=== PATIENT | male | born 1990 | race Caucasian/White ===

== ENCOUNTER 2019-07-14 17:32 | Emergency (ER) | payer SELFPAY ==
[~2019-07-14] VITALS: Ht 175.3 cm; Wt 86.4 kg
[2019-07-14 17:49] VITALS: BP 129/72; TEMP 98
[2019-07-14 19:08] VITALS: PULSE 75
== END 2019-07-14 19:06 | disposition home or self-care (01) ==
LOC: COL.ER 17:32
DX: S90.32XA Contusion of left foot, initial encounter (principal); E11.9 Type 2 diabetes mellitus without complications; Z79.4 Long term (current) use of insulin; X50.1XXA Overexertion from prolonged static or awkward postures, initial encounter; Y92.009 Unspecified place in unspecified non-institutional (private) residence as the place of occurrence of the external cause